=== PATIENT | female | born 1955 | race Caucasian/White ===

== ENCOUNTER → 2023-11-27 07:08 | Outpatient (REF) | payer MEDICARE, OTHER, SELFPAY | LOC: RAD 07:08 | PROVIDERS: ATTENDING PHYSICIAN Neurological Surgery; FAMILY PHYSICIAN Family Medicine | DX: Z98.1 Arthrodesis status (principal) | CPT/HCPCS: 72110; 72131 ==

== ENCOUNTER → 2024-03-24 15:43 | Outpatient (REF) | payer MEDICARE, OTHER, SELFPAY | LOC: RAD 15:43 | PROVIDERS: ATTENDING PHYSICIAN Neurological Surgery; FAMILY PHYSICIAN Family Medicine | DX: Z98.1 Arthrodesis status (principal) | CPT/HCPCS: 72100 ==

== ENCOUNTER → 2024-06-15 15:48 | Outpatient (REF) | payer MEDICARE, OTHER, SELFPAY | LOC: RAD 15:48 | PROVIDERS: ATTENDING PHYSICIAN Nurse Practitioner Adult Health; FAMILY PHYSICIAN Family Medicine | DX: Z98.1 Arthrodesis status (principal) | CPT/HCPCS: 72110 ==

== ENCOUNTER → 2024-08-17 15:09 | Outpatient (REF) | payer MEDICARE, OTHER, SELFPAY | LOC: REG 15:09 | PROVIDERS: ATTENDING PHYSICIAN Student in an Organized Health Care Education/Training Program; FAMILY PHYSICIAN Family Medicine | DX: M25.50 Pain in unspecified joint (principal); M25.531 Pain in right wrist; M25.532 Pain in left wrist; M54.59 Other low back pain; M79.641 Pain in right hand; M79.642 Pain in left hand; N18.9 Chronic kidney disease, unspecified; R21 Rash and other nonspecific skin eruption; E55.9 Vitamin D deficiency, unspecified; M47.9 Spondylosis, unspecified | CPT/HCPCS: 73110; 73130 ==

== ENCOUNTER → 2024-08-25 14:42 | Outpatient (REF) | payer MEDICARE, OTHER, SELFPAY ==
[2024-08-25 15:38] LABS: % Basophils 0.4 % (0-2); % Eosinophils 0.9 % (0-6); % Immature Granulocytes 1.5 % (0-0.5); % Lymphocytes 27.8 % (20.5-51.1); % Monocytes 11.9 % (1.7-9.3); % Neutrophils 57.5 % (42.2-75.2); Absolute Immature Granulocytes 0.1 10^3/uL (0-0.05); Absolute Lymphocytes 1.3 10^3/uL (1.2-3.4); Absolute Monocytes 0.6 10^3/uL (0.1-0.6); Absolute Neutrophils 2.7 10^3/uL (1.4-6.5); Hemoglobin 13.2 g/dL (12.0-16.0); Mean Corp Hgb Conc. 34.7 g/dL (33.0-37.0); Mean Corpuscular Hgb 31.9 pg (27.0-31.0); Mean Corpuscular Volume 91.8 fL (81.0-99.0); Mean Platelet Volume 9.5 fL (7.4-10.4); Nucleated Red Blood Cells % 0 %; Platelet Count 170 10^3/uL (130-400); Red Blood Cell Count 4.14 10^6/uL (4.20-5.40); Red Cell Dist. Width 12.2 % (11.5-14.5); White Blood Cell Count 4.6 10^3/uL (4.8-10.8)
[2024-08-25 15:42] LABS: Erythrocyte Sed Rate 7 mm/hour (0-20)
[2024-08-25 15:56] LABS: ALT (SGPT) 22 U/L (0-35); AST (SGOT) 27 U/L (14-36); Albumin 4.5 g/dl (3.5-5.0); Alkaline Phosphatase 54 U/L (38-126); Blood Urea Nitrogen 20 mg/dl (7-17); Calcium 9.6 mg/dl (8.4-10.2); Carbon Dioxide 26 mmol/L (22-30); Chloride 103 mmol/L (98-107); Glucose 99 mg/dl (70-99); Potassium 4.4 mmol/L (3.5-5.1); Sodium 139 mmol/L (135-145); Total Bilirubin 0.4 mg/dl (0.2-1.3); Total CK 62 U/L (30-135); Total Protein 6.9 g/dl (6.3-8.2); eGFR 49.31
[2024-08-25 16:00] LABS: C-Reactive Protein < 5.00 mg/L (0.0-10.00)
[2024-08-27 13:35] LABS: Lyme Antibody Screen, EIA Negative (Negative)
[2024-08-27 18:50] LABS: HLA-B27 Negative (Negative)
[2024-08-28 02:03] LABS: ANA, IgG Reflex to HEp-2 None Detected (None Detected)
[2024-08-28 02:56] LABS: ds-DNA Ab, IgG Reflex To Titer 9 IU (0-24)
== END ==
LOC: REG 14:42
PROVIDERS: ATTENDING PHYSICIAN Student in an Organized Health Care Education/Training Program; FAMILY PHYSICIAN Internal Medicine Cardiovascular Disease
DX: E55.9 Vitamin D deficiency, unspecified (principal); M25.50 Pain in unspecified joint; M25.531 Pain in right wrist; M25.532 Pain in left wrist; M45.0 Ankylosing spondylitis of multiple sites in spine; M45.9 Ankylosing spondylitis of unspecified sites in spine; M47.9 Spondylosis, unspecified; M54.59 Other low back pain; M79.641 Pain in right hand; M79.642 Pain in left hand; R21 Rash and other nonspecific skin eruption
CPT/HCPCS: 36415; 80053; 82306; 82550; 83516; 85025; 85652; 86038; 86140; 86225; 86235; 86618; 86812

== ENCOUNTER → 2024-09-22 15:20 | Outpatient (REF) | payer MEDICARE, OTHER, SELFPAY | LOC: RAD 15:20 | PROVIDERS: ATTENDING PHYSICIAN Neurological Surgery | DX: Z98.1 Arthrodesis status (principal) | CPT/HCPCS: 72110 ==

== ENCOUNTER → 2025-05-28 07:58 | Outpatient (REF) | payer MEDICARE, OTHER, SELFPAY | LOC: MRI 07:58 | PROVIDERS: ATTENDING PHYSICIAN Pain Medicine Interventional Pain Medicine; FAMILY PHYSICIAN Family Medicine | DX: M54.16 Radiculopathy, lumbar region (principal) | CPT/HCPCS: 72158; A9575 ==

== ENCOUNTER → 2025-06-14 13:35 | Outpatient (REF) | payer MEDICARE, OTHER, SELFPAY | LOC: RAD 13:35 | PROVIDERS: ATTENDING PHYSICIAN Neurological Surgery; FAMILY PHYSICIAN Family Medicine | DX: Z98.1 Arthrodesis status (principal) | CPT/HCPCS: 72050; 72100 ==